=== PATIENT | female | born 1950 | race Caucasian/White ===

== ENCOUNTER → 2022-10-10 | Emergency (ER) | payer SELFPAY ==
[2022-10-10 14:04] VITALS: BP 103/75; PULSE 94; RESP 18; TEMP 99.4; BMI 22.1
== END | disposition left against medical advice (07) ==
LOC: JERFT 14:01
DX: K08.89 Other specified disorders of teeth and supporting structures (principal); Z53.21 Procedure and treatment not carried out due to patient leaving prior to being seen by health care provider
CPT/HCPCS: 99281-25